=== PATIENT | male | born 1985 | race Caucasian/White ===

== ENCOUNTER 2024-11-18 12:23 | Emergency (ER) | payer MEDICAID, SELFPAY ==
[2024-11-18 12:30] VITALS: BP 143/86; PULSE 84; RESP 18; TEMP 36.9; O2SAT 97; BMI 28.5
[2024-11-18 12:55] VITALS: BP 143/86; PULSE 84; RESP 19; TEMP 36.7
--- NOTE | 2024-11-18 14:15 | [facility].EDGENADL ---
Discharge Plan Disposition Patient Disposition: Home, Self-Care Condition: Good Referrals Follow up/Referrals: Clif Fernandes DO [Staff Physician] - See instructions Provider,Enoch, [Primary Care Provider] - See instructions Eva Marie DPM [Staff Physician] - See instructions Activity Restrictions/Add. Instructions Additional Instructions/Restrictions: You were evaluated in the emergency department today. We recommended obtaining x-rays to evaluate for broken bones, however since you declined we are recommending close follow-up with your primary care provider, orthopedics, or podiatry. Take Tylenol and ibuprofen as needed for pain. Rest, ice, and elevate your foot to reduce pain and swelling. Return to the emergency department for new or worsening symptoms. Clinical Impressions Clinical Impression: Crush injury of toe Stand Alone Forms Stand Alone Forms: Work/School Release Instructions Patient Instructions: DI for Toe Fracture, DI for Crush Injury Print Language Print Language: Welsh Discharge ED Provider: Marli Renee General Adult HPI General Chief complaint: PAIN Stated complaint: AO 11/17/24 Crushed his foot-R foot swelling/pain Time Seen by Provider: 11/18/24 12:34 Mode of Arrival: Ambulatory Source of Information: Patient Description of Symptoms (Recalled from ER Triage Doc. by RN): pt presents to ED with c/o right foot pain. pt reports that last night while at work a cart rolled and fell onto his foot. bruising and pain noted to great toe. History of Present Illness HPI narrative: This patient is a 39-year-old male who denies significant past medical history presenting to the emergency department for evaluation with concern for crush injury to the toes of his right foot. Patient reports that he dropped something on at work yesterday. He is still ambulatory and able to bear weight. He states he is just here for a work excuse so that he can rest until the swelling goes down. Related Data Allergies Allergy/AdvReac Type Severity Reaction Status Date / Time No Known Allergies Allergy Verified 11/18/24 12:36 [facility] Disclaimer: The information contained in this section may have been updated after the patient was seen, as this information can be updated by other users. Social History Smoking Status: Current every day smoker alcohol intake: never current occupational status: employed Travel in the last 8 weeks?: None ROS Obtained: Yes All systems reviewed & no additional complaints except as documented Physical Exam General General appearance: alert and in no apparent distress Head Head exam: atraumatic and normocephalic Eye Eye exam: Present normal appearance, PERRL and EOMI ENT ENT exam: Present normal exam, normal oropharynx, mucous membranes moist and normal external ear exam Neck Neck exam: Present normal inspection, full ROM and trachea midline; Absent tenderness Chest Chest inspection: Present normal inspection and symmetric chest wall rise; Absent tenderness Respiratory Respiratory exam: Present normal lung sounds bilaterally; Absent respiratory distress, wheezes, stridor or accessory muscle use Cardiovascular Cardiovascular exam: Present regular rate and normal rhythm Abdominal Exam Abdominal exam: Present soft; Absent distention, tenderness or guarding Extremities Exam Extremities exam: Present full ROM, tenderness and normal capillary refill; Absent edema Expanded Lower Extremity Exam Right: Comment: Bruising to the toes of the right foot, no open wounds. Neurovascularly intact distally with intact range of motion Back Exam Back exam: Present normal inspection and full ROM; Absent tenderness Neurological Exam Neurological exam: Present alert, oriented X3, CN II-XII intact and normal gait; Absent motor sensory deficit Psychiatric Psychiatric exam: Present normal affect and normal mood Skin Skin exam: Present warm and dry Medical Decision Making Medical Records Medical records reviewed: Yes I reviewed the patient's medical records. Screening: Per USPSTF and CDC recommendations, given the prevalence of disease in our region, it is our hospital?s policy to screen for HIV and viral Hepatitis for all patients aged 18 and over and those with ongoing risk factors. [place] Inquiry Pt receiving controlled substance: No Vital Signs: 11/18/24 12:30 11/18/24 12:55 Temperature 98.4 F 98.0 F Temperature Source Oral Pulse Rate 84 Pulse Rate [Left Radial] 84 Respiratory Rate 18 19 Blood Pressure 143/86 H Blood Pressure [Right Arm] 143/86 H Blood Pressure Mean [Right Arm] 105 Blood Pressure Source [Right Arm] Automatic Cuff Blood Pressure Position [Right Arm] Supine 02 Sat by Pulse Oximetry 97 Oxygen Delivery Method Room Air Lab Data Lab results reviewed: Yes I reviewed the patient's lab results. Medical Decision Narrative: In summary, this patient is a 39-year-old male presenting to the Emergency Department for evaluation of crush injury to the right toes. Differential diagnoses considered include but are not limited to crush injury, fracture, contusion, strain/sprain. Ruling out the most morbid conditions drove assessment. On exam, the patient has bruising to the toes of the right foot but is neurovascularly intact distally. He has intact range of motion. No open wounds. I recommended obtaining x-ray to evaluate for fractures requiring immobilization/treatment. He adamantly refused, stating that he will not wear a splint or boot anyway so it would waste his time to get an x-ray. He states that he just wants a work excuse and to go home. Given this, he was discharged via patient directed discharge. He was given instructions to follow-up should he change his mind and strict return precautions Critical Care Critical Care Time Critical Care Time: No
== END 2024-11-18 12:56 | disposition home or self-care (01) ==
PROVIDERS: Emergency Provider Emergency Medicine
DX: S97.81XA Crushing injury of right foot, initial encounter (principal); W20.8XXA Other cause of strike by thrown, projected or falling object, initial encounter
CPT/HCPCS: 99282